=== PATIENT | male | born 1940 | race Caucasian/White ===

== ENCOUNTER 2022-03-18 05:54 | Observation (INO) ==
[~2022-03-18 05:54] MED LIST: Buffered Lidocaine 1% SYRIN 1 ml INTRADERM ONE; Lactated Ringers 1000 ml BAG 1,000 ML IV SCH; Metoclopramide 5 MG/ML VIAL (10 mg) IV PRN; Naloxone 0.4 mg VIAL 0.4 mg/ml 1 ml VIAL IV PRN; Ondansetron 4 mg VIAL 2 MG/ML 2 ml VIAL IV PRN
[2022-03-18] MEDS ORDERED: Buffered Lidocaine 1% SYRIN 1 ml INTRADERM ONE (06:00)
[2022-03-18] MEDS ORDERED: Lactated Ringers 1000 ml BAG 1,000 ML IV SCH ×2 (06:00→12:00)
[2022-03-18] MEDS ORDERED: ceFAZolin 2 GM in NS PREMIX 2 GM/100 ML BAG IVPB ONE (06:21)
[2022-03-18] MEDS ORDERED: ROPIVACAINE 5 MG/ML 30 ML BTL (0.5%) ONE (06:57)
[2022-03-18] MEDS ORDERED: fentaNYL 100 mcg/2 ml 50 MCG/ML VIAL ONE ×4 (06:57→13:27)
[2022-03-18] MEDS ORDERED: Vancomycin 1,000 MG VIAL ONE (07:06)
[2022-03-18] MEDS ORDERED: Midazolam 2 mg/2 ml VIAL 1 mg/ml 2 ml VIAL (2 mg) ONE (07:20)
[2022-03-18] MEDS ORDERED: Propofol 10 MG/ML 20 ML BTL ONE (08:07)
[2022-03-18] MEDS ORDERED: Rocuronium 50 mg VIAL 10 mg/ml 5 ml VIAL (50 mg) ONE ×2 (08:07→09:00)
[2022-03-18] MEDS ORDERED: Dexamethasone IV 4 MG/ML VIAL 1 ml VIAL ONE (08:07)
[2022-03-18] MEDS ORDERED: Lidocaine 2% PF 5 ML VIAL ONE (08:07)
[2022-03-18] MEDS ORDERED: Ondansetron 4 mg VIAL 2 MG/ML 2 ml VIAL ONE (11:33)
[2022-03-18] MEDS ORDERED: Ondansetron ODT 4 mg TAB 4 MG TAB PO PRN (11:52)
[2022-03-18] MEDS ORDERED: Lactulose 30 ml UDC PO PRN (11:52)
[2022-03-18] MEDS ORDERED: Ondansetron 4 mg VIAL 2 MG/ML 2 ml VIAL IV PRN (11:52)
[2022-03-18] MEDS ORDERED: Magnesium Hydroxide LIQ 30 ML UDC PO PRN (11:52)
[2022-03-18] MEDS ORDERED: Morphine 2 MG/ML SYRINGE IV PRN (11:52)
[2022-03-18] MEDS ORDERED: HYDROcodone/ACETAMIN 5/325 mg TAB ONE ×2 (12:11→12:55)
[2022-03-18] MEDS: fentaNYL 100 mcg/2 ml 50 MCG/ML VIAL IV PRN ×4 (12:16→13:29)
[2022-03-18] MEDS: HYDROcodone/ACETAMIN 5/325 mg TAB PO PRN ×2 (12:17→12:55)
[2022-03-18] MEDS: ceFAZolin 1 GM ADVAN 1 GM in NS 0.9% 50 ML 50 ML IVPB SCH ×2 (16:40→23:45)
[2022-03-18] MEDS ORDERED: NF:Mirabegron 25 mg ER TAB (NF) PO SCH (21:00)
[2022-03-18] MEDS: Magnesium Hydroxide LIQ 30 ML UDC PO SCH (21:47)
[2022-03-19 05:24] LABS: Hematocrit 33 % (42-52); Mean Platelet Volume 7.6 fL (7.4-10.4); Platelet Count 179 10^3/uL (150-450)
[2022-03-19 05:45] LABS: Calcium 8.2 mg/dL (8.6-10.3); Potassium 4.1 mmol/L (3.5-5.0); eGFR CKD-EPI 88.2 (>60)
[2022-03-19] MEDS: ceFAZolin 1 GM ADVAN 1 GM in NS 0.9% 50 ML 50 ML IVPB SCH (08:52)
[2022-03-19] MEDS: Magnesium Hydroxide LIQ 30 ML UDC PO SCH (08:52)
[2022-03-19] MEDS ORDERED: Multivitamins/Minerals TAB PO SCH (09:00)
[2022-03-19] MEDS ORDERED: Cholecalciferol (VIT D3) 1,000 unit TAB PO SCH (09:00)
[2022-03-19] MEDS ORDERED: Vitamin THERAPEUTIC TAB PO SCH (09:00)
[2022-03-19 15:38] VITALS: BP 108/58
[2022-03-19] MEDS ORDERED: CMCS:Alfuzosin ER 10 mg TAB.ER (NF) 10 MG TAB.ER PO SCH (21:00)
[2022-03-20] MEDS ORDERED: Alfuzosin ER 10 mg TAB.ER (NF) 10 MG TAB.ER PO SCH (21:00)
== END 2022-03-19 16:40 | disposition home or self-care (01) ==
LOC: SSU 05:54 → OR 05:54
PROVIDERS: ADMIT Orthopaedic Surgery; ATTEND Orthopaedic Surgery